=== PATIENT | female | born 1945 | race Caucasian/White ===

== ENCOUNTER 2017-08-15 16:29 | Emergency (ER) | payer OTHER ==
[~2017-08-15] VITALS: Ht 160 cm; Wt 100.1 kg
[~2017-08-15 16:29] MED LIST: PRINIVIL10 MG PO; TENORMIN50 MG PO
[2017-08-15 17:32] LABS: HEMATOCRIT 39.6 % (36.0-46.0); MCH 28.4 PG (29.0-34.0); MCHC 34.3 G/DL (30.0-36.0); MCV 82.7 FL (83-99); MEAN PLAT.VOLUME 10.1 uM^3 (9.5-12.4); PLATELET COUNT 261 K/uL (156-360); RBC DIS.WIDTH-CV 12.7 % (11.8-14.6); RBC DIS.WIDTH-SD 38.7 % (39-53); RED BLOOD COUNT 4.79 M/uL (3.80-5.20); WHITE BLOOD COUNT 8.7 K/uL (4.1-10.2)
[2017-08-15 17:40] LABS: CHLORIDE 106 mEq/L (99-109); POTASSIUM 3.5 mEq/L (3.7-5.4); SODIUM 135 mEq/L (136-147)
[2017-08-15 17:43] LABS: GLUCOSE 172 mg/dL (70-99)
[2017-08-15 17:44] LABS: ANION GAP 8 MEQ/L (2-14)
[2017-08-15 17:45] LABS: TOTAL BILIRUBIN 0.4 mg/dL (0.0-1.0)
[2017-08-15 17:46] LABS: ALKALINE PHOSPHATASE 115 IU/L (3-129); GFR ESTIMATE (CALCULATED) 58 mL/min/
[2017-08-15 17:47] LABS: UREA NITROGEN (BUN) 12 mg/dL (9-23)
[2017-08-15] MEDS ORDERED: ANTIVERT25 MG PO (19:34)
[2017-08-15 20:12] VITALS: BP 135/65
== END 2017-08-15 20:13 | disposition home or self-care (01) ==
LOC: EME 16:29
PROVIDERS: Emergency Medicine
DX: R42 Dizziness and giddiness (principal); I10 Essential (primary) hypertension; Z87.891 Personal history of nicotine dependence
CPT/HCPCS: 70450; 80053; 85027; 93005; 99281; 99285